=== PATIENT | female | born 1965 | race Caucasian/White ===

== ENCOUNTER 2016-07-20 10:20 | Emergency (ER) | payer OTHER ==
[2016-07-20] MEDS ORDERED: Aspirin Low Dose CHEW TAB* 81 MG PO ONE (10:22)
--- NOTE | 2016-07-20 10:29 | UC ---
Cardiac HPI - HPI Summary HPI Summary: chest pain episodic. one time on Wednesday and then again today. she has no prior cardiac hx but has not been going to a doctor for routine care for "a long time." Slight cough otherwise no other preceeding issues. she feels clammy now. - History of Current Complaint Stated Complaint: CHEST PAINS Time Seen by Provider: 07/20/16 10:22 Hx Obtained From: Patient Onset/Duration: Sudden Onset, Lasting Minutes Timing: Constant Initial Severity: Moderate Current Severity: Moderate Chest Pain Location: Upper Sternal, Left Lateral Character: Fast, Pounding Aggravating: Nothing Alleviating: Nothing Associated Signs & Symptoms: Positive: Chest Pain, Anxiety, SOB, Diaphoresis, Cough. Negative: Nausea/Vomiting, Hemoptysis, Calf Pain/Swelling - Risk Factors Pulmonary Embolism Risk Factors: Smoking Cardiac Risk Factors: Smoking, Family History AMI/ACS Risk Factors: Family History - Allergy/Home Medications Allergies/Adverse Reactions: Allergies Allergy/AdvReac Type Severity Reaction Status Date / Time Penicillins Allergy Unknown Unknown Verified 07/20/16 10:23 Reaction Details PMH/Surg Hx/FS Hx/Imm Hx Endocrine History Of: Denies: Diabetes - Surgical History Surgical History: Yes Surgery Procedure, Year, and Place: tubal ligation, cholecystectomy - Family History Known Family History: Positive: Cardiac Disease - Social History Alcohol Use: Weekly Alcohol Amount: 12 on weekends Substance Use Type: Excessive Caffeine Substance Use Comment - Amount & Last Used: 8-20 cups per day Smoking Status (MU): Heavy Every Day Tobacco Smoker Review of Systems All Other Systems Reviewed And Are Negative: Yes Physical Exam Triage Information Reviewed: Yes Appearance: Well-Nourished, Pain Distress Vital Signs Reviewed: Yes Eye Exam: Normal Eyes: Positive: Conjunctiva Clear. Negative: Conjunctiva Inflamed ENT: Positive: Normal ENT inspection, Pharynx normal Neck exam: Normal Neck: Positive: Supple, Nontender, No Lymphadenopathy. Negative: Nuchal Rigidity, Tenderness @, Enlarged Nodes @ Respiratory Exam: Normal Respiratory: Positive: Chest non-tender, Lungs clear, Normal breath sounds, No respiratory distress, No accessory muscle use. Negative: Accessory muscle use Cardiovascular: Positive: RRR, No Murmur, Pulses Normal, Brisk Capillary Refill , Tachycardia Abdominal Exam: Normal Abdomen Description: Positive: Nontender, No Organomegaly, Soft Musculoskeletal: Positive: No Edema Neurological Exam: Normal Neurological: Positive: Alert Skin Exam: Normal Skin: Negative: rashes - she appears anxious. Diagnostics - EKG Cardiac Rate: Tachycardia Cardiac Rhythm: Sinus: Normal Ectopy: None ST Segment: Normal - Assessment/Plan Course Of Treatment: chest pain, high risk. Gall bladder has been removed. EKG sinus tach without ST changes. Transfer to ED. Accepted by Dr. Parisi. - Differential Diagnoses - Chest Pain Differential Diagnosis/HQI/PQRI: Acute HI, ACS, Angina, Aortic Aneurysm, CHF, Chest Wall, GI Disease, Lower Respiratory Infection, Pulmonary Edema, Pulmonary Embolism - Clinical Impression Provider Diagnoses: chest pain. transfer to ED. - Physician Notifications Discussed Patient Care With: Dr. Júnior Parisi from [facility] who accepts patient. Discharge - Discharge Plan Condition: Guarded Disposition: TRANS HIGHER LVL OF CARE FAC
[2016-07-20 10:50] VITALS: BP 157/88
== END 2016-07-20 11:01 | disposition short-term general hospital (02) ==
LOC: UCCORT 10:20
DX: R07.2 Precordial pain (principal); R00.0 Tachycardia, unspecified; Z90.49 Acquired absence of other specified parts of digestive tract; Z88.0 Allergy status to penicillin; F17.210 Nicotine dependence, cigarettes, uncomplicated
CPT/HCPCS: 93005; 99203; A9270-GY; G0463